=== PATIENT | female | born 1980 | race Two or more races ===

== ENCOUNTER 2018-03-27 10:19 | Emergency (ER) | payer MEDICAID ==
[2018-03-27] MEDS ORDERED: SODIUM CHLORIDE 0.9% 1,000 ML IV ONE (10:47)
[2018-03-27 11:42] LABS: Basophils # (auto) 0.1 uL; Basophils % (auto) 0.6 % (0.0-2.0); Eosinophils # (auto) 0.1 uL; Eosinophils % (auto) 1.4 % (0.0-7.0); Hemoglobin 13.1 g/dL (12.2-16.2); Lymphocytes # (auto) 3.3 uL; Lymphocytes % (auto) 34.7 % (10.0-50.0); Mean Corpuscular Hemoglobin 30.4 pg (28.0-32.0); Mean Corpuscular Hgb Conc. 35.5 g/dL (32.0-36.0); Mean Corpuscular Volume 85.5 fL (80.0-100.0); Monocytes # (auto) 0.5 uL; Monocytes % (auto) 5.4 % (0.0-12.0); Neutrophils # (auto) 5.5 uL; Neutrophils % (auto) 57.9 % (37.0-80.0); Nucleated Red Blood Cells % 0.1 %; Platelet Count (auto) 344 10^3/uL (140-450); Red Blood Cells 4.32 10^6/uL (4.0-5.20); Red Cell Distribution Width 13.8 % (11.8-14.3); White Blood Cell 9.5 10^3/uL (4.4-10.8)
[2018-03-27 12:04] LABS: Albumin 3.6 g/dL (3.4-5.0); BUN/Creatinine Ratio 12.2; Bilirubin, Total 0.2 mg/dL (0.2-1.0); Calcium 8.8 mg/dL (8.5-10.1); Magnesium 2.4 mg/dL (1.6-2.6); Potassium 4.1 mmol/L (3.5-5.1); Total Protein 7.5 g/dL (6.4-8.2)
[2018-03-27 12:53] LABS: Urine Bacteria NONE SEEN /hpf (None Seen); Urine Blood Negative /uL (Negative); Urine Mucus FEW (None Seen); Urine Specific Gravity 1.026 (1.001-1.035); Urine WBC 8 /hpf (0 - 5)
[2018-03-27] MEDS ORDERED: cloNIDine HCL 0.1 MG TAB PO ONE (17:30)
[2018-03-27 18:56] VITALS: BP 147/95
== END 2018-03-27 19:25 | disposition home or self-care (01) ==
LOC: ER 10:19
DX: N39.0 Urinary tract infection, site not specified (principal); R42 Dizziness and giddiness; E11.9 Type 2 diabetes mellitus without complications; I10 Essential (primary) hypertension
CPT/HCPCS: 36415; 80053; 81001; 82010; 83735; 85025; 93005; 94761; 96360; 96361; 99285; J7030

== ENCOUNTER 2019-05-11 08:10 | Emergency (ER) | payer MEDICAID ==
[~2019-05-11] VITALS: Ht 160 cm; Wt 90.7 kg
[2019-05-11 09:30] LABS: Urine Bacteria NONE SEEN /hpf (None Seen); Urine Blood Negative /uL (Negative); Urine WBC 1 /hpf (0 - 5)
[2019-05-11 09:37] VITALS: BP 159/94
== END 2019-05-11 10:29 | disposition home or self-care (01) ==
LOC: ER 08:10
DX: T18.9XXA Foreign body of alimentary tract, part unspecified, initial encounter (principal); E11.65 Type 2 diabetes mellitus with hyperglycemia; R21 Rash and other nonspecific skin eruption; I10 Essential (primary) hypertension; X58.XXXA Exposure to other specified factors, initial encounter; Y93.89 Activity, other specified; Y92.89 Other specified places as the place of occurrence of the external cause; Y99.8 Other external cause status
CPT/HCPCS: 74018; 81001; 81025; 82962

== ENCOUNTER 2021-06-08 19:20 | Emergency (ER) | payer SELFPAY ==
[~2021-06-08] VITALS: Ht 160 cm; Wt 95.3 kg
[2021-06-08 23:57] VITALS: BP 164/99
[2021-06-09] MEDS ORDERED: DexAMETHasone SOD PHOS 10MG/1ML VIAL INJ IM ONE (00:15)
[2021-06-09] MEDS ORDERED: KETOROLAC TROMETH 60MG/2ML VIAL IM ONE (00:15)
== END 2021-06-09 01:32 | disposition home or self-care (01) ==
LOC: ER 19:23
DX: H60.92 Unspecified otitis externa, left ear (principal); E11.9 Type 2 diabetes mellitus without complications; I10 Essential (primary) hypertension
CPT/HCPCS: 96372; 99284; J1100; J1885

== ENCOUNTER 2022-04-06 03:48 | Emergency (ER) | payer SELFPAY ==
[~2022-04-06] VITALS: Ht 172.7 cm; Wt 90.7 kg
[2022-04-06] MEDS ORDERED: ACETAMINOPHEN 325 MG TAB PO ONE (07:15)
[2022-04-06] MEDS ORDERED: InsuLIN REG 1unit/0.01ml Soln (100units/ml) SC ONE (07:30)
[2022-04-06 07:35] VITALS: BP 157/89
[2022-04-06] MEDS ORDERED: ACET-1080 PO (08:28)
== END 2022-04-06 08:58 | disposition home or self-care (01) ==
LOC: EDBD 03:48 → EDSEX 03:48 → ER 03:48
DX: E11.65 Type 2 diabetes mellitus with hyperglycemia (principal); I10 Essential (primary) hypertension; Z76.0 Encounter for issue of repeat prescription
CPT/HCPCS: 96372; 99283; J1815